=== PATIENT | male | born 2000 | race Caucasian/White ===

== ENCOUNTER 2023-12-04 01:38 | Emergency (ER) | payer OTHER, SELFPAY ==
[2023-12-04] VITALS (9 sets, daily range): BP systolic 131–161; BP diastolic 77–94; PULSE 76–114; TEMP 37.1; O2SAT 97–99; BMI 28.1
--- NOTE | 2023-12-04 02:03 | ECG_ITS ---
The [facility] Test Date: 2023-12-04 Pat Name: JERRY BOYD Department: Room: - Gender: Male [employer]: : 2000 Requested By: [id number] Order Number: [id number] Reading MD: LEATHA SR Measurements Intervals [place] Rate: 103 P: 65 CT: 142 QRS: 84 QRSD: 94 T: 68 QT: 312 QTc: 371 Interpretive Statements 1102 Sinus arrhythmia 1120 Sinus tachycardia 9140 abnormal rhythm ECG No previous ECG available for comparison Electronically Signed On 12-04-2023 6:52:13 EDT by LEATHA SR
--- NOTE | 2023-12-04 02:03 | ED_ITS ---
HPI HPI - General Adult General Chief complaint: Chest Pain Stated complaint: SOB/CHEST PAIN Time Seen by Provider: 12/04/23 02:00 Source: patient Mode of arrival: walk-in Limitations: no limitations History of Present Illness HPI narrative: 23-year-old male presents to the emergency department for chief complaint of chest pain. It started 2 hours ago when he was at work. He was not doing anything exertional and there was no trauma. No fever or cough or back pain. He had similar symptoms a few weeks ago and was seen at another hospital and followed up with his doctor and he was told it was reflux and anxiety. Related Data Home Medications ?Medication ?Instructions ?Recorded ?Confirmed No Known Home Medications 12/04/23 12/04/23 Allergies Allergy/AdvReac Type Severity Reaction Status Date / Time No Known Drug Allergies Allergy Verified 12/04/23 01:47 Opioid HPI Opioid Management Most Recent Opioid Data: No Data to Display Review of Systems ROS Narrative A ten point review of systems is negative except as noted above. PFSH PFSH Social History Little interest or pleasure in doing things: several days Feeling down, depressed, or hopeless: several days Exam Narrative Exam Narrative: Nurses note and vital signs reviewed and patient is not hypoxic. General: The patient appears well and in no apparent distress. Patient is resting comfortably on cart. Skin: Warm, dry, no pallor noted. There is no rash noted. Head: Normocephalic, atraumatic Eye: Normal conjunctiva, no drainage Ears, Nose, Mouth, and Throat: oral mucosa is moist. Nares patent. Cardiovascular: Regular Rate and Rhythm Respiratory: Patient is in no distress, no accessory muscle use, lungs are clear to auscultation, no wheezing, rales or rhonchi Back: non-tender GI: Soft and nontender Musculoskeletal: The patient has no evidence of calf tenderness, no pitting edema, symmetrical pulses noted bilaterally Neurological: A&O, normal speech Psychiatric: Cooperative Constitutional Vital Signs, click to edit/add: Last Vital Signs Temp 98.7 F 12/04/23 01:41 Pulse 114 H 12/04/23 01:41 Resp 18 12/04/23 01:41 BP 161/94 H 12/04/23 01:41 Pulse Ox 99 12/04/23 01:41 O2 Del Method Room Air 12/04/23 01:41 Course Vital Signs Vital signs: Vital Signs Temperature 98.7 F 12/04/23 01:41 Pulse Rate 114 H 12/04/23 01:41 Respiratory Rate 18 12/04/23 01:41 Blood Pressure 161/94 H 12/04/23 01:41 Pulse Oximetry 99 12/04/23 01:41 Oxygen Delivery Method Room Air 12/04/23 01:41 Temperature 98.7 F 12/04/23 01:41 Pulse Rate 114 H 12/04/23 01:41 Respiratory Rate 18 12/04/23 01:41 Blood Pressure 161/94 H 12/04/23 01:41 Pulse Oximetry 99 12/04/23 01:41 Oxygen Delivery Method Room Air 12/04/23 01:41 Medical Decision Making MDM Narrative Medical decision making narrative: His workup including EKG and chest x-ray are negative. I suspect that this may be in part GERD and in part stress. Findings are discussed with the patient and he is able to be discharged home. I have no clinical suspicion of pulmonary embolism or acute coronary syndrome. Differential Diagnosis Differential Diagnosis: GERD, anxiety, pneumothorax, [place] Imaging Data Chest x-ray: My impression: Chest x-ray my interpretation shows no acute finding ECG Data Attestation: I personally reviewed and interpreted this ECG as follows: (EKG on my interpretation shows sinus rhythm with a rate of 103 and no acute change) Discharge Plan Discharge Chief Complaint: Chest Pain Clinical Impression: Chest pain Patient Disposition: Home, Self-Care Time of Disposition Decision: 02:31 Condition: Good Mode of Transportation: Private Vehicle Prescriptions / Home Meds: No Action No Known Home Medications Print Language: Mexican Instructions: Chest Pain (ED) Referrals: Physician,Non-Staff, [Primary Care Provider] - 1 week
--- NOTE | 2023-12-04 02:03 | XR_ITS ---
The [address] [address] Patient Name: JERRY BOYD MRN: [id number] date: 2000 Sex: M Assigned Patient Location: ER Current Patient Location: Accession/Order Number: [id number] Exam Date: 12/04/2023 02:18 Report Date: 12/04/2023 02:41 At the request of: JOHN MAHER Procedure: XR chest 1V EXAM: XR chest 1V HISTORY: CP COMPARISON: None. TECHNIQUE: AP portable upright view of the chest FINDINGS: Lungs are clear of focal consolidation. No pleural effusion or pneumothorax. Normal cardiomediastinal silhouette. No pulmonary vascular congestion. No acute osseous or soft tissue abnormalities. XR/XR chest 1V IMPRESSION: No acute cardiopulmonary process. Electronically authenticated by: ABDULLAHI RG Date: 12/04/2023 02:41
== END 2023-12-04 02:38 | disposition home or self-care (01) ==
PROVIDERS: Emergency Provider Emergency Medicine
DX: R07.9 Chest pain, unspecified (principal)
CPT/HCPCS: 71045; 93005; 99284

== ENCOUNTER 2024-06-06 02:00 | Emergency (ER) | payer SELFPAY ==
[2024-06-06 02:03] VITALS: BP 155/89; PULSE 98; TEMP 37.6; O2SAT 99; BMI 28.1
--- OUTSIDE RECORDS SUMMARY | 2024-06-06 02:11 | XMS_ITS | CCD ---
Author Organization [facility] Care Team Providers Care Head Of Transport Logistics Name Role Phone VAL HANSON Primary Care UnavailMARTIN Dia Attending Unavailable MARTIN MONROY Attending Unavailable MARTIN MONROY Referring Unavailable VAL HANSON Primary Care VAL Kenney Primary Care UnavailEASTON Lee Attending Unavailable Problems Active Problems Problem Classification Problem Date Documented Da te Episodic/Chronic Other ear and sense organ disorders (1 source) Impacted cerumen, right ear; Translations: [Impacted cerumen, right ear] Onset: 06-03-2024 Episodic Unclassified (1 source) Earache Onset: 06-03-2024 Unclassified (1 source) Sidepain Onset: 11-14-2023 Past or Other Problems Problem Classification Problem Date Documented Da te Episodic/Chronic Nonspecific chest pain (1 source) Chest pain, unspecified; Translations: [Chest pain, unspecified] Onset: 11-14-2023 Episodic Other lower respiratory disease (1 source) Rib pain Onset: 11-14-2023 Episodic Sprains and strains (1 source) Strain of muscle and tendon of front wall of thorax, initial encounter; Translations: [Strain of muscle and tendon of front wall of thorax, initial encounter] Onset: 11-14-2023 Episodic Results Test Name Value Interpretation Reference Range Facil ity XR RIBS LT 3 VWS W PA CHESTo n 11-14-2023 XR RIBS LT 3 VWS W PA CHEST XR RIBS LT 3 VWS W PA CHEST XR RIBS LT 3 VWS W PA CHEST Clinical history:Left-sided rib pain acute chest pain Comparison: None. Findings: No focal opacity, effusion or pneumothorax. Cardiomediastinal silhouette is within normal limits. There is no evidence of contour deforming or displaced rib fracture identified. Impression: No evidence of acute cardiopulmonary process or displaced/contour deforming rib fracture. Finalized by Martin Oliver MD on 11/14/2023 7:28 AM Normal [facility] Encounters Encounter Date Encounter Type Care Provider Facility Start: 06-03-2024 End: 06-03-2024 Emergency department patient visit VAL HANSON [facility] Start: 11-14-2023 End: 11-15-2023 Emergency department patient visit MARTIN Franklin PORFIRIO [facility] Payers Date Payer Category Payer Private Health Insurance [id number] 2000 Unknown [id number] 2000 Unknown [id number] 2000 Unknown [id number] Summary Purpose Family History No Family History Records Found Advance Directives No Advanced Directives Records Found Additional Source Comments (unrecognized sect ion and content) No Status Records Found INFORMATION SOURCE (unrecogn ized section and content) DATE CREATED AUTHOR 06/04/2024 [facility] FOR RECORDS PERTAINING TO PATIENTS WHO ARE OR HAVE BEEN ENROLLED IN A CHEMICAL DEPENDENCY/SUBSTANCEABUSE PROGRAM, SOME INFORMATION MAY BE OMITTED. This clinical summary was aggregated from multiple sources. Caution should be exercised in using it in the provision of clinical care. This summary normalizes information from multiple sources, and as a consequence, information in this document may materially change the coding, format and clinical context of patient data. In addition, data may be omitted in some cases. CLINICAL DECISIONS SHOULD BE BASED ON THE PRIMARY CLINICAL RECORDS. [employer] provides no warranty or guarantee of the accuracy or completeness of information in this document.
[2024-06-06 02:15] VITALS: O2SAT 98
--- NOTE | 2024-06-06 02:27 | ED.EAR1 ---
HPI - Ear Problem General Chief complaint: Ear Stated complaint: EAR PAIN Time Seen by Provider: 06/06/24 02:22 Source: patient Mode of arrival: walk-in Limitations: no limitations History of Present Illness HPI Narrative: complains of right ear pain. Sounds are muffled. No headache. States was seen at another hospital and advised to use Debrox which he feels made it worse Related Data Home Medications ?Medication ?Instructions ?Recorded ?Confirmed No Known Home Medications 12/04/23 12/04/23 Allergies Allergy/AdvReac Type Severity Reaction Status Date / Time No Known Drug Allergies Allergy Verified 06/06/24 02:07 Review of Systems ROS Status of ROS 10 or more systems reviewed and unremarkable except as noted in history and below PFSH PFSH Social History Little interest or pleasure in doing things: not at all Feeling down, depressed, or hopeless: not at all Exam Constitutional Vital Signs, click to edit/add: Last Vital Signs Temp 99.7 F 06/06/24 02:03 Pulse 98 H 06/06/24 02:03 Resp 16 06/06/24 02:03 BP 155/89 H 06/06/24 02:03 Pulse Ox 98 06/06/24 02:15 O2 Del Method Room Air 06/06/24 02:15 Common normals: no apparent distress, average body habitus, oriented x3, no limitations, healthy appearing, alert and well nourished [facility] Common normals: normocephalic and head/scalp atraumatic Other: ear wax impacted right ear Eye Common normals: EOMs intact bilaterally and conjunctivae normal Respiratory Common normals: normal respiratory effort, no retractions and no use of accessory muscles Cardio Common normals: regular rate and regular rhythm Extremity Common normals: normal to inspection and full ROM Neuro Common normals: oriented x3, CN's II-XII intact bilaterally, moves all extremities, no focal motor deficits and no sensory deficits noted Psych Appearance: grossly normal Course Vital Signs Vital signs: Vital Signs Temperature 99.7 F 06/06/24 02:03 Pulse Rate 98 H 06/06/24 02:03 Respiratory Rate 16 06/06/24 02:03 Blood Pressure 155/89 H 06/06/24 02:03 Pulse Oximetry 99 06/06/24 02:03 Oxygen Delivery Method Room Air 06/06/24 02:03 Temperature 99.7 F 06/06/24 02:03 Pulse Rate 98 H 06/06/24 02:03 Respiratory Rate 16 06/06/24 02:03 Blood Pressure 155/89 H 06/06/24 02:03 Pulse Oximetry 98 06/06/24 02:15 Oxygen Delivery Method Room Air 06/06/24 02:15 Medical Decision Making MDM Narrative Medical decision making narrative: presents with impacted wax right ear and muffled sounds. Ear irrigated by nursing successfully. Patient tolerated well. Is now able to hear and no longer has pressure in the ear Discharge Plan Discharge Chief Complaint: Ear Clinical Impression: Excessive cerumen in ear canal Patient Disposition: Home, Self-Care Prescriptions / Home Meds: No Action No Known Home Medications Print Language: Kinyarwanda Instructions: Carbamide Peroxide (Into the ear) Referrals: Physician,Non-Staff, MD [Primary Care Provider] - 1 week
--- NOTE | 2024-06-06 02:59 | PC.NURSE ---
i gave this patient verbal and written discharge orders and this patient voices yes to undersatnding these discharge orders. at time of discharge this patient voices no concerns and shows no signs of distress
== END 2024-06-06 03:00 | disposition home or self-care (01) ==
PROVIDERS: Emergency Provider Internal Medicine
DX: H61.21 Impacted cerumen, right ear (principal)
CPT/HCPCS: 99282